=== PATIENT | male | born 2000 | race African-American/Black ===

== ENCOUNTER 2020-04-02 21:35 | Emergency (ER) | payer OTHER ==
[~2020-04-02] VITALS: Ht 182.9 cm; Wt 79.0 kg
[2020-04-02 21:46] VITALS: BP 139/93
--- NOTE | 2020-04-02 21:54 | PHYS DOC ---
Past History Past Medical History: Asthma (JACOBY CARRERA APRN) Past Surgical History: Cholecystectomy (JACOBY CARRERA APRN) Alcohol Use: None (JACOBY CARRERA APRN) Adult General Chief Complaint Chief Complaint: DYSPNEA/RESPIRATOY DISTRESS HPI HPI Patient is a 19-year-old male presents emergency department complaint of intermittent periods of shortness of breath and some chest pains that started last January, patient states that he was last in [place] few weeks ago and was given an antibiotic which did not seem to help. Patient states he does happen to be in the area and thought he would drop in and see if there is anything wrong with him at this time. Patient currently denies any chest pains or shortness of breath. Patient states that both his mom and dad are generally healthy, however he states his dad had some stress-induced hypertension that he does not take medications for. 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 Patient states he does not smoke cigarettes, drink alcohol, or do any illicit drugs. Patient denies any current fever or chills, cough, congestion, chest pain, chest palpitations, nausea, vomiting, diarrhea, lesions of his skin, or swelling of his extremities. Patient denies being in contact with anyone that has the COVID-19 virus, patient states I do not have the Covid I do not need tested. (JACOBY CARRERA APRN) Review of Systems Review of Systems 14 body systems of review of systems have been reviewed. See HPI for pertinent positives and negative responses, otherwise all other systems are negative, nonpertinent or noncontributory. (JACOBY CARRERA APRN) Family History Family History Mom has a history of alopecia, dad has a history of stress-induced hypertension which she does not take medications for (JACOBY CARRERA APRN) Current Medications Current Medications Patient takes no prescription medications at home. (JACOBY CARRERA APRN) Allergies Allergies Allergies Coded Allergies Type Severity Reaction Last Updated Verified cat dander Allergy Unknown 04/02/20 Yes (JACOBY CARRERA APRN) Physical Exam Physical Exam Constitutional: Well developed, well nourished, no acute distress, non-toxic appearance. HENT: Normocephalic, atraumatic, bilateral external ears normal, oropharynx moist, no oral exudates, nose normal. Eyes: PERRLA, EOMI, conjunctiva normal, no discharge. Neck: Normal range of motion, no tenderness, supple, no stridor. Cardiovascular:Heart rate regular rhythm, no murmur heart sounds S1-S2 to auscultation. Lungs & Thorax: Bilateral breath sounds clear to auscultation all lung faustin. Abdomen: Bowel sounds normal, soft, no tenderness, no masses, no pulsatile masses. Skin: Warm, dry, no erythema, no rash. Back: No tenderness, no CVA tenderness. Extremities: No tenderness, no cyanosis, no clubbing, ROM intact, no edema. Neurologic: Alert and oriented X 3, normal motor function, normal sensory function, no focal deficits noted. Psychologic: Affect normal, judgement normal, mood normal. (JACOBY CARRERA APRN) Current Patient Data Vital Signs Vital Signs Date Time Temp Pulse Resp B/P (MAP) Pulse Ox O2 Delivery O2 Flow Rate FiO2 04/02/20 21:46 97.6 76 18 139/93 (108) 100 Room Air (JACOBY CARRERA APRN) EKG EKG [] (JACOBY CARRERA APRN) EKG Normal sinus rhythm, heart rate 55, no ST elevation or depression, no ectopy, normal intervals, T waves unremarkable. (LORETO LAMAR MD) Radiology/Procedures Radiology/Procedures SEX: M EXAM STATUS: REG ER ORD. PHYSICIAN: JACOBY CARRERA APRN REASON: SHORT OF BREATH, chest pain PROCEDURE: CHEST PA & LATERAL Exam: Chest 2 views INDICATION: Short of breath TECHNIQUE: Frontal and lateral views the chest Comparisons: None FINDINGS: The cardiomediastinal silhouette and pulmonary vessels are within normal limits. The lung and pleural spaces are clear. IMPRESSION: No acute cardiopulmonary process. Electronically signed by: Christo Wilson MD (04/02/2020 10:20 PM) [facility] DICTATED AND SIGNED BY: CHRISTO WILSON MD DATE: 04/02/202218 CC: JACOBY CARRERA APRN; EMERGENCY,DEPARTMENT; PCP,NO ~MTH0 0 (JACOBY CARRERA APRN) Radiology/Procedures Exam: Chest 2 views INDICATION: Short of breath TECHNIQUE: Frontal and lateral views the chest Comparisons: None FINDINGS: The cardiomediastinal silhouette and pulmonary vessels are within normal limits. The lung and pleural spaces are clear. IMPRESSION: No acute cardiopulmonary process. (LORETO LAMAR MD) Heart Score Risk Factors: Risk Factors: DM, Current or recent (<one month) smoker, HTN, HLP, family history of CAD, obesity. Risk Scores: Risk Factors: DM, Current or recent (<one month) smoker, HTN, HLP, family history of CAD, obesity. (JACOBY CARRERA APRN) Course & Med Decision Making Course & Med Decision Making Pertinent Labs and Imaging studies reviewed. (See chart for details) 19-year-old male presents emergency department with intermittent chest pain since last January, worried him the most was that he used to be a track runner and noticed that when he runs he does not have the stamina that he used to. Patient does not have a significant family history of cardiac or pulmonary disease. Patient states he was seen recently at [place] urgent [facility] and was started on antibiotic which did not seem to help. Patient currently denies no chest pain, no shortness of breath. An EKG was ordered along with a PA lateral chest. The patient's Wells score equals 0, unlikely this is a pulmonary embolus. The patient is nontoxic, the patient is in no apparent distress, the patient is in no respiratory distress. Currently awaiting EKG results and chest x-ray results. Discussed patient case with ED attending Dr. Lamar who has agreed to take over patient care during the emergency department stay. (JACOBY CARRERA APRN) Dragon Disclaimer Dragon Disclaimer This electronic medical record was generated, in whole or in part, using a voice recognition dictation system. (JACOBY CARRERA APRN) Departure Departure: Impression: Primary Impression: Chest pain Disposition: 01 DC HOME SELF CARE/HOMELESS Condition: STABLE Referrals: PCP,NO (PCP) Patient Instructions: Chest Pain (Nonspecific) JACOBY CARRERA APRN Apr 02, 2020 21:54 LORETO LAMAR MD Apr 02, 2020 22:59
--- NOTE | 2020-04-02 22:22 | RAD ---
Exam: Chest 2 views INDICATION: Short of breath TECHNIQUE: Frontal and lateral views the chest Comparisons: None FINDINGS: The cardiomediastinal silhouette and pulmonary vessels are within normal limits. The lung and pleural spaces are clear. IMPRESSION: No acute cardiopulmonary process. Electronically signed by: Manny Ram MD (04/02/2020 10:20 PM) [facility]
--- NOTE | 2020-04-02 22:55 | EKG ---
[address] [address] Test Date: 2020-04-02 Test Time: 22:32:41 Pat Name: NA GA Department: Room: Gender: M [employer]: : 2000 Requested By: JACOBY CARRERA Order Number: [id number] Reading MD: Measurements Intervals [place] Rate: 55 P: 59 [place]: 204 QRS: 71 QRSD: 100 T: 31 QT: 368 QTc: 354 Interpretive Statements SINUS RHYTHM OTHERWISE NORMAL ECG RI6.02 No previous ECG available for comparison
== END 2020-04-02 23:15 | disposition home or self-care (01) ==
LOC: ER 21:35
DX: R07.9 Chest pain, unspecified (principal); R06.02 Shortness of breath; J45.909 Unspecified asthma, uncomplicated; Z88.8 Allergy status to other drugs, medicaments and biological substances
CPT/HCPCS: 71046; 93005; 99283

== ENCOUNTER 2020-04-09 16:14 | Emergency (ER) | payer OTHER ==
[~2020-04-09] VITALS: Ht 180.3 cm; Wt 80.8 kg
--- NOTE | 2020-04-09 16:53 | PHYS DOC ---
Past History Past Medical History: Asthma Past Surgical History: Cholecystectomy Alcohol Use: None General Adult EDM: Chief Complaint: MECHANICAL FALL HPI: HPI: History obtained from patient. Patient is a 19-year-old male with no reported past medical history who presents with complaint of right shoulder pain status post fall from skateboard. Patient states yesterday he fell to the ground while skateboarding on his right shoulder. He states he has had right lateral clavicle pain since then. States it is difficult for him to range his right upper extremity due to discomfort. Denies obvious deformity. States he fell again today while skateboarding and scraped his right knee. He states he has no concern regarding his right knee. Denies any head or midline neck pain. Has not tried medicine prior to arrival. Has tried ice with some relief. Denies n umbness or tingling. Denies weakness. No other complaints. Review of Systems: Review of Systems: Constitutional: Denies fever or chills Eyes: Denies change in visual acuity HENT: Denies nasal congestion or sore throat Respiratory: Denies cough or shortness of breath Cardiovascular: Denies chest pain or edema GI: Denies abdominal pain, nausea, vomiting, bloody stools or diarrhea : Denies dysuria Musculoskeletal: Positive for right shoulder pain. Integument: Denies rash Neurologic: Denies headache, focal weakness or sensory changes Endocrine: Denies polyuria or polydipsia Lymphatic: Denies swollen glands Psychiatric: Denies depression or anxiety Allergies: Allergies: Allergies Coded Allergies Type Severity Reaction Last Updated Verified cat dander Allergy Unknown 04/02/20 Yes Physical Exam: PE: Physical Exam Trauma: Primary Survey: Airway: Intact. Speaks in normal voice and phonation. Breathing: Breath sounds are clear and equal bilaterally. Circulation: Regular rhythm, 2+ and symmetric radial, DP and PT pulses. Disability: GCS on arrival was 15. Pupils 3 mm, ERRL Exposure: Complete exposure obtained and described in detail below. Secondary Survey: General: Awake, alert, appropriate, and in no acute distress HENT: Atraumatic. TMs clear bilaterally, no hemotympanum. No periorbital tenderness or deformity. No obvious craniofacial trauma. Midface is stable. No apparent dental or tongue/oropharyngeal injury. No septal hematoma. Neck: C-spine: no midline tenderness. Without step-off, deformity, abrasion, ecchymosis, or other signs of trauma. Paraspinal musculature with no tenderness and/or hypertonicity. Eyes: Pupils 3 mm ERRL, EOMI grossly, no evidence of ocular trauma, conjunctivae normal Respiratory: CTAB without wheezing, rhonchi, or rales. No distress. Chest wall with no tenderness to palpation. No crepitus, ecchymosis, or flail segment present. Cardiovascular: Regular rhythm without murmurs noted. 2+ and symmetric radial, DP and PT pulses. GI: Soft, non-tender, non-distended Musculoskeletal: T-spine: no midline tenderness. Without step-off, deformity, abrasion, ecchymosis, or other signs of trauma. Paraspinal musculature with no tenderness and/or hypertonicity. L-spine: no midline tenderness. Without step-off, deformity, abrasion, ecchymosis, or other signs of trauma. Paraspinal musculature with no tenderness and/or hypertonicity. RUE: Tenderness to palpation over the lateral third of the clavicle. No skin tenting noted. No obvious deformity. Active and passive range of motion limited due to pain. +2-4 radial pulse on right. Compartments soft. Sensation to the median, ulnar, and radial nerves intact. LUE: Active ROM, no obvious deformity, no gross weakness or sensory deficits, warm & well-perfused RLE: Active ROM, no obvious deformity, no gross weakness or sensory deficits, warm & well-perfused. Abrasion overlying right patella. LLE: Active ROM, no obvious deformity, no gross weakness or sensory deficits, warm & well-perfused Integument: Without abrasions, contusions, or lacerations. Neurologic: GCS on arrival as noted above. No obvious focal motor or sensory deficits on examination. Gait not assessed due to acuity of trauma assessment. Current Patient Data: Vital Signs: Vital Signs Date Time Temp Pulse Resp B/P (MAP) Pulse Ox O2 Delivery O2 Flow Rate FiO2 04/09/20 17:00 97.9 64 20 126/78 (94) 98 Room Air EKG: EKG: [] Radiology/Procedures: Radiology/Procedures: [address] [address] IMAGING REPORT Signed PATIENT: NA GA ACCOUNT: [id number] : 2000 LOCATION: ER AGE: 19 SEX: M EXAM STATUS: REG ER ORD. PHYSICIAN: ASYA JEAN DO REASON: r clavicle pain s/p fall PROCEDURE: CLAVICLE RIGHT Exam: Right clavicle 2 views INDICATION: Right clavicle pain status post fall TECHNIQUE: Frontal and axillary views of the right clavicle Comparisons: None FINDINGS: Bone mineralization is normal. No acute or healed fractures. Soft tissues are unremarkable. Joint spaces are well-maintained. IMPRESSION: No acute osseous abnormality. Electronically signed by: Manny Wilson MD (04/09/2020 5:52 PM) [facility] DICTATED AND SIGNED BY: MANNY WILSON MD DATE: 04/09/201750 CC: PCP,NO; ASYA JEAN DO ~MTH0 0 [] Heart Score: Risk Factors: Risk Factors: DM, Current or recent (<one month) smoker, HTN, HLP, family hi story of CAD, obesity. Risk Scores: Score 0 - 3: 2.5% MACE over next 6 weeks - Discharge Home Score 4 - 6: 20.3% MACE over next 6 weeks - Admit for Clinical Observation Score 7 - 10: 72.7% MACE over next 6 weeks - Early Invasive Strategies Course & Med Decision Making: Course & Med Decision Making Pertinent Labs and Imaging studies reviewed. (See chart for details) [] Patient is a 19-year-old male who presents with chief complaint of right shoulder pain status post fall from skateboard yesterday. Initial vital signs unremarkable. Exam noted above. Plain film imaging as interpreted by myself reveals no obvious fracture. Given he does have limitations in his range of motion and point tenderness he will be given a sling for home. He was especially instructed not to use this exclusively and to exercise and gently range his shoulder to prevent worsening range of motion restrictions. He was encouraged to use anti-inflammatories and ice at home. Up-to-date on tetanus vaccination. Return precautions discussed and understood. He will be given referral to her primary care physician as well as document specialist for this become a chronic issue. Stable for discharge. Dragon Disclaimer: Dragelmer Disclaimer: This electronic medical record was generated, in whole or in part, using a voice recognition dictation system. Departure Departure: Impression: Primary Impression: Right shoulder pain Qualified Codes: M25.511 - Pain in right shoulder Additional Impression: Fall Qualified Codes: W19.XXXA - Unspecified fall, initial encounter Referrals: CLIVE TRACY MD, JOHN N MD Patient Instructions: Shoulder Sprain Additional Instructions: Please follow-up with your primary care physician in the next week. Scripts Ibuprofen (IBUPROFEN) 200 Mg Tablet 600 MG PO QIDPRN PRN for PAIN, #15 TAB Prov: ASYA JEAN DO 04/09/20 ASYA JEAN DO Apr 09, 2020 16:53
[2020-04-09 17:00] VITALS: BP 126/78
[2020-04-09] MEDS ORDERED: IBUP-1673 PO (17:41)
--- NOTE | 2020-04-09 17:54 | RAD ---
Exam: Right clavicle 2 views INDICATION: Right clavicle pain status post fall TECHNIQUE: Frontal and axillary views of the right clavicle Comparisons: None FINDINGS: Bone mineralization is normal. No acute or healed fractures. Soft tissues are unremarkable. Joint spa ashely are well-maintained. IMPRESSION: No acute osseous abnormality. Electronically signed by: Manny Ram MD (04/09/2020 5:52 PM) [facility]
== END 2020-04-09 18:10 | disposition home or self-care (01) ==
LOC: ER 16:14
DX: G89.11 Acute pain due to trauma (principal); M25.511 Pain in right shoulder; R20.2 Paresthesia of skin; J45.909 Unspecified asthma, uncomplicated; Z90.49 Acquired absence of other specified parts of digestive tract; Z88.8 Allergy status to other drugs, medicaments and biological substances; V00.131A Fall from skateboard, initial encounter; Y93.89 Activity, other specified; Y92.89 Other specified places as the place of occurrence of the external cause; Y99.8 Other external cause status
CPT/HCPCS: 73000; 99283